=== PATIENT | female | born 1955 | race Caucasian/White ===

== ENCOUNTER → 2021-03-14 | Outpatient (CLI) | payer MEDICARE, OTHER ==
--- NOTE | 2021-03-14 13:18 | Diagnostic Imaging Report ---
INDICATION: Back pain, prior laminectomy and fusion. COMPARISON: None. FINDINGS: Three views of the lumbar column demonstrate stable-appearing laminectomy and fusion from L3 through S1. There is slight anterolisthesis of L4-L5. Pedicle screws and stabilization rods at this level appear to be well seated. There is moderate degenerative disc disease at L5-S1. IMPRESSION: Stable laminectomy and fusion. No traumatic malalignment or fracture. Dictated by: Dictated on workstation # [id number]
== END ==
LOC: RAD 11:30
PROVIDERS: ATTEND Neurological Surgery
DX: M48.061 Spinal stenosis, lumbar region without neurogenic claudication (principal); M43.16 Spondylolisthesis, lumbar region; Z98.1 Arthrodesis status; Z98.890 Other specified postprocedural states
CPT/HCPCS: 72100

== ENCOUNTER → 2021-04-27 | Outpatient (CLI) | payer OTHER ==
--- NOTE | 2021-04-27 12:35 | Diagnostic Imaging Report ---
INDICATION: Lumbar spine surgery. TIME OF EXAM: 11:32 a.m. COMPARISON: Correlation is made with prior radiographs from 03/14/2021. FINDINGS: Postop changes of laminectomy from L3 through L5 are noted. There is posterior instrumented fusion with vertical stabilization rods and pedicle screws transfixing the L4-L5 level. Minimal anterolisthesis of L4 on L5 is again noted. Vertebral body heights are maintained. The hardware appears to be intact without fracture or loosening. L5-S1 degenerative disc disease with disc space narrowing and marginal spurring is unchanged. IMPRESSION: Stable lumbar spine radiographs when compared with examination from 03/14/2021. Dictated by: Dictated on workstation # [id number]
== END ==
LOC: RAD 10:50
PROVIDERS: ATTEND Neurological Surgery
DX: M48.061 Spinal stenosis, lumbar region without neurogenic claudication (principal); M43.16 Spondylolisthesis, lumbar region
CPT/HCPCS: 72100

== ENCOUNTER → 2021-07-26 | Outpatient (CLI) | payer OTHER ==
--- NOTE | 2021-07-26 15:10 | Diagnostic Imaging Report ---
Indication: Lumbar spine fusion. Time of Exam: 12:07 PM Three views of the lumbar spine were obtained. There is normal lumbar lordotic curvature. Postop changes posterior instrumented fusion with vertical stabilization rods and pedicle screws transfix the L4/L5 level. There is minimal anterolisthesis of L4 on L5. Vertebral body heights are well-maintained. No acute compression fracture is seen. There are laminectomy changes at L3-L5. Hardware is intact. IMPRESSION: Postoperative changes of posterior instrumented fusion at L4-L5. No acute abnormality is detected. Dictated by: Dictated on workstation # [id number]
== END ==
LOC: RAD 11:32
PROVIDERS: ATTEND Neurological Surgery
DX: M48.061 Spinal stenosis, lumbar region without neurogenic claudication (principal); M43.16 Spondylolisthesis, lumbar region; Z98.1 Arthrodesis status
CPT/HCPCS: 72100

== ENCOUNTER → 2021-12-14 | Outpatient (CLI) | payer OTHER | LOC: RAD 14:54 | PROVIDERS: ATTEND Nurse Practitioner | DX: Z12.31 Encounter for screening mammogram for malignant neoplasm of breast (principal) | CPT/HCPCS: 77063; 77067 ==

== ENCOUNTER 2021-12-31 05:55 | Outpatient (CLI) | payer OTHER ==
[~2021-12-31] VITALS: Ht 157.5 cm; Wt 90.9 kg
[2021-12-31] MEDS ORDERED: CALC420T7 PO (16:10)
[2021-12-31] MEDS ORDERED: FENO30CA PO (16:10)
[2021-12-31] MEDS ORDERED: RT-ALBUINH IH (16:10)
[2021-12-31] MEDS ORDERED: LOSA25TA41 PO (16:10)
== END 2021-12-31 16:14 | disposition home or self-care (01) ==
LOC: PREOP 05:55
PROVIDERS: ATTEND Otolaryngology Otolaryngology/Facial Plastic Surgery
DX: Z01.818 Encounter for other preprocedural examination (principal)

== ENCOUNTER 2022-01-03 05:54 | Day surgery (SDC) | payer OTHER ==
[2022-01-03] VITALS (11 sets, daily range): BP systolic 104–136; BP diastolic 62–82
[~2022-01-03] VITALS: Ht 157.5 cm; Wt 90.2 kg
[~2022-01-03 05:54] MED LIST: CALC420T7 PO; FENO30CA PO; LOSA25TA41 PO; RT-ALBUINH IH
[2022-01-03 06:43] LABS: BASOPHILS # (AUTO) 0.1 10^3/uL (0.0-0.1); BASOPHILS % (AUTO) 1 % (0-10); EOSINOPHILS # (AUTO) 0.4 10^3/uL (0.0-0.3); EOSINOPHILS % (AUTO) 6 % (0-10); HEMATOCRIT 38 % (35-52); LYMPHOCYTES # (AUTO) 1.6 10^3/uL (1.0-4.0); LYMPHOCYTES % (AUTO) 25 % (12-44); MEAN CORPUSCULAR HEMOGLOBIN 29 pg (25-34); MEAN CORPUSCULAR HGB CONC 34 g/dL (32-36); MEAN CORPUSCULAR VOLUME 84 fL (80-99); MEAN PLATELET VOLUME 9.5 fL (9.0-12.2); MONOCYTES # (AUTO) 0.8 10^3/uL (0.0-1.0); MONOCYTES % (AUTO) 12 % (0-12); NEUTROPHILS # (AUTO) 3.5 10^3/uL (1.8-7.8); NEUTROPHILS % (AUTO) 56 % (42-75); PLATELET COUNT 299 10^3/uL (130-400); WHITE BLOOD COUNT 6.3 10^3/uL (4.3-11.0)
[2022-01-03] MEDS: LACTATED RINGERS 1,000 ML IV PRN ×2 (07:00→08:55)
[2022-01-03] MEDS ORDERED: fentaNYL INJ 100 MCG/2 ML AMP ONE (07:02)
[2022-01-03] MEDS ORDERED: MIDAZOLAM 2 MG/2 ML (VERSED) VIAL ONE (07:02)
[2022-01-03] MEDS ORDERED: LIDOCAINE PF 2% 5 ML (XYLOCAINE) VIAL ONE (07:02)
[2022-01-03] MEDS ORDERED: proPOfol 200 MG/20 ML (DIPRIVAN) VIAL IV ONE (07:02)
[2022-01-03] MEDS ORDERED: ONDANSETRON 4 MG/2 ML (SDV) Z0FRAN ONE (07:02)
[2022-01-03] MEDS ORDERED: SEVOFLURANE (ULTANE) 15 ML INHAL SOLN ONE (07:02)
[2022-01-03] MEDS ORDERED: ROCURONIUM 10 MG/ML 5 ML SYRINGE IV ONE (07:02)
[2022-01-03] MEDS ORDERED: LIDOCAINE/EPI 2% 1:200,00 (XYLOCAINE) 10 ML VIAL ONE (07:03)
--- NOTE | 2022-01-03 07:06 | Progress Note-Pre Operative ---
Pre-Operative Progress Note Date of Available H&P: Jan 03, 2022 Date H&P Reviewed: Jan 03, 2022 Time H&P Reviewed: 06:30 History & Physical: H&P Reviewed, Patient Examed, No changes noted Changes from last HP none Pre-Operative Diagnosis: Skin cancer Left Nasal Dorsum ERIC DANGELO MD Jan 03, 2022 07:06
[2022-01-03 07:11] LABS: POTASSIUM 3.9 MMOL/L (3.6-5.0)
[2022-01-03 07:12] LABS: CALCIUM 9.1 MG/DL (8.5-10.1)
[2022-01-03 07:16] LABS: CREATININE SERUM 0.81 MG/DL (0.60-1.30)
[2022-01-03] MEDS ORDERED: BSS 15 ML ONE (07:51)
[2022-01-03] MEDS ORDERED: PHENYLEPHRINE 100 MCG/ML 10 ML (ANESTHESIA) SYR ONE (07:55)
[2022-01-03] MEDS ORDERED: MUPIROCIN 2% OINT 22 GM (BACTROBAN) TUBE ONE (08:11)
[2022-01-03] MEDS ORDERED: LIDOCAINE/EPI 2% 1:200,00 (XYLOCAINE) 10 ML VIAL IJ ONE (08:15)
[2022-01-03] MEDS ORDERED: MUPIROCIN 2% OINT 22 GM (BACTROBAN) TUBE TP ONE (08:17)
[2022-01-03] MEDS ORDERED: BSS 15 ML IO ONE (08:19)
[2022-01-03] MEDS ORDERED: SUGAMMADEX 500 MG/5 ML VIAL (BRIDION) IV ONE (08:21)
[2022-01-03] MEDS ORDERED: ONDANSETRON 4 MG/2 ML (SDV) Z0FRAN IVP PRN (08:45)
[2022-01-03] MEDS ORDERED: HYDROmorphone 2 MG/ML VIAL (DILAUDID) IV ONE (08:45)
[2022-01-03] MEDS ORDERED: CEPH500T PO (09:26)
[2022-01-03] MEDS ORDERED: ACHD5005 PO (09:26)
--- NOTE | 2022-01-04 06:18 | Progress Note-Post Operative ---
Post-Operative Progess Note Surgeon (s)/Market Research Assistant (s) Surgeon ERIC DANGELO MD Market Research Assistant n/a Pre-Operative Diagnosis Skin cancer Left Nasal Dorsum Post-Operative Diagnosis same Post-Op Procedure Note Date of Procedure: Jan 04, 2022 Name of Procedure Performed: Excsion of Left Nasal Alar Lesion, INtermediat Repair Description & Findings Description and Findings: n/a Anesthesia Type get Estimated Blood Loss minimal Packing none. Specimen(s) collected/removed left nasal alar lesion for forzen section ERIC DANGELO MD Jan 04, 2022 06:18
[2022-01-04] MEDS ORDERED: ACETAMINOPHEN 325 MG TABLET PO PRN ×2 (06:30)
--- NOTE | 2022-01-04 07:05 | Anesthesia-General Post-Op ---
General Patient Condition Mental Status/LOC: Same as Preop Cardiovascular: Satisfactory Nausea/Vomiting: Absent Respiratory: Satisfactory Pain: Controlled Complications: Absent Post Op Complications Complications None Follow Up Care/Instructions Patient Instructions None needed. Anesthesia/Patient Condition Patient Condition Patient is doing well, no complaints, stable vital signs, no apparent adverse anesthesia problems. No complications reported per nursing. D/C home per [facility] Criteria: Yes SERENITY MAK CRNA Jan 04, 2022 07:05
== END 2022-01-03 10:15 | disposition home or self-care (01) ==
LOC: SDC 05:54
PROVIDERS: ATTEND Otolaryngology Otolaryngology/Facial Plastic Surgery
DX: C44.311 Basal cell carcinoma of skin of nose (principal); K21.9 Gastro-esophageal reflux disease without esophagitis; E66.9 Obesity, unspecified; Z68.36 Body mass index [BMI] 36.0-36.9, adult
CPT/HCPCS: 36415; 80048; 85025; 87081; 93005

== ENCOUNTER → 2022-01-21 | Outpatient (CLI) | payer OTHER ==
[~2022-01-21] MED LIST changes: +ACHD5005 PO; +CEPH500T PO
--- NOTE | 2022-01-22 09:03 | Diagnostic Imaging Report ---
PROCEDURE: CT lumbar spine without contrast. TECHNIQUE: Multiple contiguous axial images were obtained through the lumbar spine without the use of intravenous contrast. Sagittal and coronal reformations were then performed. Auto Exposure Controls were utilized during the CT exam to meet ALARA standards for radiation dose reduction. Date: January 21, 2022. Indication: 66-year-old female, history of low lumbar surgery in January 2021. Follow-up exam. History of low back pain. Comparison: Lumbar spine radiographs July 26, 2021. Findings: There is posterior spinal fusion hardware spanning L4-L5. There is hardware related artifact. There is no clearly identified fracture of the hardware. There is no abnormal lucency surrounding the fixation screws. There is grade 1 anterolisthesis of L4 on L5 measuring 5 mm. There are bilateral laminectomy changes of L3, L4, and L5. 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 There is no identified pseudoarthrosis. There is also complete bone ankylosis posteriorly spanning across the L3-L4 level. There is severe disc height loss at L5-S1. There is moderate disc height loss at L4-L5. CT is limited for assessment of disc pathology as well as additional nonbony causes of pathology in the spinal canal. There is no identified compression deformity or fracture. There is no aggressive bone lesion. The sacroiliac joints are grossly unremarkable in appearance. There are atherosclerotic calcifications. Impression: 1. Intact posterior spinal fusion hardware spanning L4-L5 without identified complication. 2. Severe disc height loss at L5-S1. CT is suboptimal for assessment of disc pathology and additional non-bony causes of pathology in the spinal canal as well as for evaluation of foraminal and spinal stenosis. 3. No acute fracture or other acute osseous abnormality. 4. Bilateral laminectomy changes of L3, L4, and L5. Dictated by: Dictated on workstation # [id number]
== END ==
LOC: RAD 10:15
PROVIDERS: ATTEND Neurological Surgery
DX: M51.37 Other intervertebral disc degeneration, lumbosacral region (principal); Z98.1 Arthrodesis status; Z98.890 Other specified postprocedural states
CPT/HCPCS: 72131

== ENCOUNTER → 2022-02-01 | Outpatient (CLI) | payer OTHER ==
[~2022-02-01] MED LIST changes: +ALBU8.5H6 IH; -RT-ALBUINH IH
--- NOTE | 2022-02-01 13:24 | Diagnostic Imaging Report ---
PROCEDURE: CT sinuses without contrast TECHNIQUE: Multiple contiguous axial images were obtained through the sinuses without the use of intravenous contrast. Coronal and sagittal reformations were then performed. Auto Exposure Controls were utilized during the CT exam to meet ALARA standards for radiation dose reduction. INDICATION: Chronic sinusitis COMPARISON: None available. FINDINGS: There is an infiltrative/lytic process giving a mottled appearance of the clivus. The posterior wall of the sella partially eroded along its base. No mass within the sella. By CT, no soft tissue mass is seen along the clivus. Frontal, maxillary, ethmoid and sphenoid sinuses are all clear. The sinus drainage pathways are also clear. Osseous nasal septum is at midline. Orbits are normal in appearance. IMPRESSION: 1. Subtle lytic process within the clivus causes partial erosions of the posterior wall of the sella. Differential includes both malignant and benign processes. Therefore, MRI of the head without and with IV contrast per the brainstem protocol is recommended. Dictated by: Dictated on workstation # [id number]
== END ==
LOC: RAD 09:45
PROVIDERS: ATTEND Otolaryngology Otolaryngology/Facial Plastic Surgery
DX: J32.9 Chronic sinusitis, unspecified (principal)
CPT/HCPCS: 70486

== ENCOUNTER → 2023-01-03 | Outpatient (CLI) | payer MEDICARE, OTHER ==
--- NOTE | 2023-01-03 09:56 | Diagnostic Imaging Report ---
INDICATION: Routine screening. Comparison is made with prior mammogram from 12/14/2021 and 11/01/2019. 2-D and 3-D bilateral screening mammography was performed with CAD. Scattered fibroglandular densities are identified bilaterally. The parenchymal pattern is stable. No mass or malignant-appearing microcalcifications are seen. Axillae are unremarkable. IMPRESSION: No mammographic features suspicious for malignancy are identified. ACR BI-RADS Category 1: Negative. Result letter will be mailed to the patient. Note: At least 10% of breast cancer is not imaged by mammography. BI-RADS Category 1 Dictated by: Dictated on workstation # [id number]
== END ==
LOC: RAD 08:47
PROVIDERS: ATTEND Nurse Practitioner
DX: Z12.31 Encounter for screening mammogram for malignant neoplasm of breast (principal)
CPT/HCPCS: 77063; 77067